=== PATIENT | male | born 2000 | race Two or more races ===

== ENCOUNTER 2019-02-23 00:56 | Emergency (ER) | payer MEDICAID ==
[2019-02-23 00:59] VITALS: BP 181/113
[2019-02-23] MEDS ORDERED: LORazepam 1 MG TAB PO ONE (01:27)
--- NOTE | 2019-02-23 01:28 | EDPHY ---
H & P Stated Complaint: ANXIETY xFEW DAYS Time Seen by Provider: 02/23/19 01:04 HPI/ROS: Chief Complaint: Anxious HPI: 18-year-old male with a history of anxiety is presenting complaining of worsening anxiety for the last 3 days. Patient states he gets anxious around. Some of stress. 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 This morning he is feeling increasingly anxious. He has been treated for anxiety in the past but has not seen anybody for several years. Not currently on any medications. He does not feel suicidal. He does not feel homicidal. He is tin for safety. He is here with his dad. He is requesting for referrals for follow-up with outpatient mental health care. ROS: 10 systems were reviewed and were negative except those elements noted in the HPI. PMH: Anxiety Social History: No smoking, no alcohol, no recreational drug use Family History: non-contributory Physical Exam: Gen: Awake, Alert, No Distress HEENT: Nose: no rhinorrhea Eyes: PERRLA, EOMI Mouth: Moist mucosa Neck: Supple, no JVD Chest: nontender, lungs clear to auscultation Heart: S1, S2 normal, no murmur Abd: Soft, non-tender, no guarding Back: no CVA tenderness, no midline tenderness Ext: no edema, non-tender Skin: no rash Neuro: CN II-XII intact, Sensation grossly intact, Strength 5/5 in bilateral upper and lower extremities - Personal History Current Tetanus/Diphtheria Vaccine: Yes Tetanus Vaccine Date: 2006 - Medical/Surgical History Hx Asthma: No Hx Chronic Respiratory Disease: No Hx Diabetes: No Hx Cardiac Disease: No Hx Renal Disease: No Hx Cirrhosis: No Hx Alcoholism: No Hx HIV/AIDS: No Hx Splenectomy or Spleen Trauma: No Other PMH: PSYCH -- MOOD DISORDER. DEPRESSION, ANXIETY. ASBURGERS ? - Social History Smoking Status: Never smoked Constitutional: Initial Vital Signs Temperature (C) 37.0 C 02/23/19 00:56 Heart Rate 97 02/23/19 00:56 Respiratory Rate 18 02/23/19 00:56 Blood Pressure 181/113 H 02/23/19 00:56 O2 Sat (%) 97 02/23/19 00:56 O2 Delivery Mode Room Air Allergies/Adverse Reactions: No Known Allergies Allergy (Verified 11/29/13 18:28) Home Medications: Medication Instructions Recorded Herbals/Supplements -Info Only 1 each PO AD 11/30/13 QUEtiapine FUMARATE [Seroquel 50 50 - 75 mg PO HS 11/30/13 mg (RX)] Medical Decision Making ED Course/Re-evaluation: 18-year-old male presenting with anxiety. He is tin for safety. He is not suicidal or homicidal. He does not meet criteria for mental health hold. Plan will be to treat him with some Ativan and discharge him to home with his dad. They will follow up at [facility] in the morning. They are in agreement with this plan. Departure - Departure Disposition: Home, Routine, Self-Care Clinical Impression: Anxiety Condition: Good Instructions: Anxiety (ED) Additional Instructions: Follow up with [facility] in the morning. Return to the emergency department for thoughts of harming yourself or others, hallucinations, hopelessness, or any other concerns. Referrals: [facility] [Clinic] - As per Instructions
== END 2019-02-23 01:41 | disposition home or self-care (01) ==
DX: F41.9 Anxiety disorder, unspecified (principal); F32.9 Major depressive disorder, single episode, unspecified